=== PATIENT | female | born 1990 | race Hispanic/Latino ===

== ENCOUNTER 2017-08-10 13:58 | Emergency (ER) | payer OTHER ==
[2017-08-10 14:05] VITALS: BP 123/80; PULSE 82; RESP 20; TEMP 97.9; O2SAT 99
[2017-08-10] MEDS ORDERED: Sodium Chloride 0.9% 1,000 ML IV STA (14:30)
--- NOTE | 2017-08-10 14:35 | ED PDOC ---
HPI: Allergic Reaction Time Seen by Provider: 08/10/17 14:20 Chief Complaint (Nursing): Allergic Reaction Chief Complaint (Provider): Allergic reaction History Per: Patient History/Exam Limitations: no limitations Onset/Duration Of Symptoms: Mins Current Symptoms Are (Timing): Gone Now Context: Food Possible Cause: Food Associated Symptoms: Skin Rash, Itching, Redness Home/EMS Treatment: Benadryl Additional History Per: Patient Additional Complaint(s): 27yo female, with known nut allergy, presents to ED for evaluation of a possible allergic reaction. Patient states she had falafel for lunch and shortly after had throat itchiness and redness to her face. She states she took 2 doses of Benadryl prior to arrival and reports the symptoms have improved. She denies any shortness of breath, throat or tongue swelling, drooling. She offers no other medical complaints. Past Medical History Reviewed: Historical Data, Nursing Documentation, Vital Signs Vital Signs: Last Vital Signs Temp 97.9 F 08/10/17 14:02 Pulse 82 08/10/17 14:02 Resp 20 08/10/17 14:02 BP 123/80 08/10/17 14:02 Pulse Ox 99 08/10/17 14:02 - Medical History PMH: No Chronic Diseases - Surgical History Surgical History: No Surg Hx - Family History Family History: States: No Known Family Hx - Home Medications Home Medications: Ambulatory Orders Medication Instructions Recorded Famotidine [Pepcid] 20 mg PO DAILY #5 tab 08/10/17 predniSONE [predniSONE Tab] 20 mg PO DAILY #12 tab 08/10/17 - Allergies Allergies/Adverse Reactions: Allergies Allergy/AdvReac Type Severity Reaction Status Date / Time nut - unspecified Allergy ANAPHYLAXIS Verified 08/10/17 14:02 Review of Systems ROS Statement: Except As Marked, All Systems Reviewed And Found Negative ENT: Positive for: Other (throat itchiness). Negative for: Mouth Swelling, Throat Swelling Respiratory: Negative for: Shortness of Breath Skin: Positive for: Rash (redness/itchiness) Physical Exam - Reviewed Nursing Documentation Reviewed: Yes Vital Signs Reviewed: Yes - Physical Exam Appears: Positive for: Non-toxic, No Acute Distress Head Exam: Positive for: ATRAUMATIC, NORMAL INSPECTION, NORMOCEPHALIC Skin: Positive for: Normal Color Eye Exam: Positive for: Normal appearance, EOMI, PERRL ENT: Positive for: Normal ENT Inspection Neck: Positive for: Normal, Supple Cardiovascular/Chest: Positive for: Regular Rate, Rhythm Respiratory: Positive for: Normal Breath Sounds. Negative for: Wheezing, Respiratory Distress Neurologic/Psych: Positive for: Alert, Oriented. Negative for: Motor/Sensory Deficits - ECG O2 Sat by Pulse Oximetry: 99 (RA) Pulse Ox Interpretation: Normal - Progress ED Course And Treament: Impression: Allergic reaction Plan: -- IV Fluids -- Pepcid 20 mg IVP -- Solumedrol 125mg IVP Time: 1600 Patient remains unchanged in ER, respirations are easy and unlabored, lung sounds CTA. Patient is stable for discharge home, instructed to follow up with PCP in 2-3 days. Scribe Attestation: Documented by Rani Ortiz, acting as a scribe for DANIEL Ricks. Provider Scribe Attestation: All medical record entries made by the Scribe were at my direction and personally dictated by me. I have reviewed the chart and agree that the record accurately reflects my personal performance of the history, physical exam, medical decision making, and the department course for this patient. I have also personally directed, reviewed, and agree with the discharge instructions and disposition. Disposition - Clinical Impression Clinical Impression: Allergic reaction Counseled Patient/Family Regarding: Diagnosis, Need For Followup, Rx Given - Disposition Disposition: Routine/Home Disposition Time: 16:00 Condition: STABLE Prescriptions: Famotidine [Pepcid] 20 mg PO DAILY #5 tab predniSONE [predniSONE Tab] 20 mg PO DAILY #12 tab Instructions: Allergy Testing Forms: HandMinder (Armenian)
== END 2017-08-10 16:17 | disposition home or self-care (01) ==
LOC: H.ER 13:58
DX: T78.40XA Allergy, unspecified, initial encounter (principal)
CPT/HCPCS: 96360; 99283; J2930; J7040